=== PATIENT | female | born 1970 | race Caucasian/White ===

== ENCOUNTER 2018-03-09 10:57 | Outpatient (CLI) | payer MEDICARE, MEDICAID ==
[~2018-03-09] VITALS: Ht 165.1 cm; Wt 83.8 kg
[2018-03-09] VITALS (10 sets, daily range): BP systolic 102–126; BP diastolic 55–76; PULSE 82–102; TEMP 97.6–97.9
[2018-03-09] MEDS ORDERED: WELLBUTRIN 75MG75 MG PO (12:33)
[2018-03-09] MEDS ORDERED: VITAMIN D31000 I1 PO (12:43)
[2018-03-09] MEDS ORDERED: ESTRACE 1MG1 MG/TAB PO (12:43)
[2018-03-09] MEDS ORDERED: REMERON30 MG PO (12:44)
[2018-03-09] MEDS ORDERED: OCREVUS300 MG/10 IV (12:46)
[2018-03-09] MEDS ORDERED: MASON NATURAL600 MG PO (12:47)
[2018-03-09] MEDS ORDERED: RISPERDAL 0.5M0.5 MG PO (12:50)
[2018-03-09] MEDS ORDERED: DETROL LA4 PO (12:50)
[2018-03-09] MEDS ORDERED: TRIMPEX100 MG PO (12:52)
== END 2018-03-09 17:23 | disposition home or self-care (01) ==
LOC: EUO 10:57
DX: G35 Multiple sclerosis (principal); Z79.899 Other long term (current) drug therapy
CPT/HCPCS: J2930; J7040

== ENCOUNTER 2018-10-04 10:20 | Outpatient (CLI) | payer MEDICARE, MEDICAID ==
[2018-10-04] VITALS (10 sets, daily range): BP systolic 82–110; BP diastolic 48–79; PULSE 80–92; TEMP 98–98.4
[~2018-10-04] VITALS: Ht 165.1 cm; Wt 76.2 kg
[~2018-10-04 10:20] MED LIST: DETROL LA4 PO; ESTRACE 1MG1 MG/TAB PO; MASON NATURAL600 MG PO; OCREVUS300 MG/10 IV; REMERON30 MG PO; RISPERDAL 0.5M0.5 MG PO; TRIMPEX100 MG PO; VITAMIN D31000 I1 PO; WELLBUTRIN 75MG75 MG PO
[2018-10-04] MEDS ORDERED: ZESTRIL 10MG10 MG PO (13:49)
[2018-10-04] MEDS ORDERED: HCTZ12.5TAB PO (13:52)
--- NOTE | 2018-10-04 15:38 | NUR ---
Infusion complete,will monitor pt for one hr after infusion completed.
--- NOTE | 2018-10-04 16:36 | NUR ---
Patietna waiting bus to pick her up.
== END 2018-10-04 17:35 | disposition home or self-care (01) ==
LOC: EUO 10:20
DX: G35 Multiple sclerosis (principal); Z79.899 Other long term (current) drug therapy
CPT/HCPCS: J2930; J7040